=== PATIENT | female | born 1990 | race Caucasian/White ===

== ENCOUNTER 2018-04-21 14:22 | Inpatient (IN) | payer MEDICAID ==
[~2018-04-21] VITALS: Ht 162.6 cm; Wt 69.9 kg
[2018-04-21] MEDS ORDERED: LACTATED RINGER'S 1000 ML INJ 1,000 ML IV PRN (15:01)
--- NOTE | 2018-04-21 15:11 | HHI.HP ---
History & Physical H&P HPI Chief Complaint ctxs Date Seen: Apr 21, 2018 Time Seen: 15:04 Travel History International Travel<30 Days: No Contact w/Intl Traveler<30Days: No Known Affected Area: No History of Present Illness HPI pt. is a 28 y/o @ 38 4/7 weeks present w/ c/o ctxs. pt. states ctxs began last pm and have increased in intensity and freq since. +FM, no lof/vb. pt. checked when present and cervix 8/100/0. pt. w/ h/o prior cd 2/2 breech. Weeks Gestation: 38 Para: 1 : 4 Miscarriage: 2 History (Limited) History Past Medical History Medical History: Denies Significant Hx Obstetric History Obstetric History , x 1, sab x1 Past Surgical History Narrative Surgical cd x 1 Family History Family History: Negative Social History Alcohol Use: No Tobacco Use: No Substance Abuse: No Allergies-Medications Allergies-Medications ROS Review of Systems Physical Exam Physical Exam Narrative GENERAL: Well-nourished, well-developed patient. SKIN: Warm and dry. HEAD: Normocephalic and atraumatic. EYES: No scleral icterus. No injection or drainage. ENT: No nasal drainage noted. Mucous membranes pink. Airway patent. NECK: Supple, trachea midline. No JVD. CARDIOVASCULAR: Regular rate and rhythm without murmurs, gallops, or rubs. RESPIRATORY: Breath sounds equal bilaterally. No accessory muscle use. ABDOMEN/GI: Abdomen soft, non-tender, bowel sounds present, no rebound, no guarding Gravid GENITOURINARY: External Genitalia: intact and normal in appearance Dilatation: 8 Effacement: 100 Station: 0 Presentation: cephalic Membranes: intact Uterine Contractions: 3-5 FHT's: Category: 1 Reactive: + Variability: mod EXTREMITIES: No cyanosis or edema. BACK: Nontender without obvious deformity. No CVA tenderness. NEUROLOGICAL: Awake and alert. Motor and sensory grossly within normal limits. Five out of 5 muscle strength in all muscle groups. Normal speech. Data Data Data Vital Signs Reviewed: Yes Orders Orders Fentanyl Inj (Fentanyl Inj) (04/21/18 14:41) Group B Strep: Negative MDM MDM Medical Record Reviewed: Yes Plan pt. to be admitted. pt. counciled on tolac and desires. fentanyl vs epidural for analgesia. will continue to follow. Diagnosis Diagnosis: Primary Impression: Uterine contractions Additional Impressions: History of delivery 38 weeks gestation of Khanh Howard Jr., MD Apr 21, 2018 15:11
[2018-04-21] MEDS ORDERED: LIDOCAINE HCL 1% 50 ML VIAL I-DERMAL PRN (15:15)
[2018-04-21] MEDS ORDERED: OXYTOCIN 30 UNITS-500ML PREMIX 500 ML IV ONE (15:15)
[2018-04-21] MEDS ORDERED: LIDOCAINE HCL 1% 50 ML VIAL INFIL PRN (15:15)
[2018-04-21] MEDS ORDERED: MINERAL OIL 10 ML VIAL TOPICAL PRN (15:15)
[2018-04-21] MEDS ORDERED: SODIUM CHLORID 0.9% 500 ML INJ 500 ML IV PRN (15:15)
[2018-04-21] MEDS ORDERED: SODIUM CHLOR 0.9% 1000 ML INJ 1,000 ML IV PRN (15:21)
[2018-04-21 15:26] LABS: AUTOMATED NEUTROPHIL # 16.8 TH/MM3 (1.8-7.7); BASOPHIL % 0.2 % (0.0-2.0); HEMATOCRIT 41.7 % (35.0-46.0); HEMOGLOBIN 14.5 GM/DL (11.6-15.3); LYMPH % 7.2 % (9.0-44.0); LYMPHOCYTE # 1.3 TH/MM3 (1.0-4.8); MEAN CELL VOLUME 90.6 FL (80.0-100.0); MEAN CORPUSCULAR HEMOGLOBIN 31.4 PG (27.0-34.0); MEAN CORPUSCULAR HGB CONC 34.7 % (32.0-36.0); MEAN PLATELET VOLUME 11.6 FL (7.0-11.0); MONO % 2.1 % (0.0-8.0); MONOCYTE # 0.4 TH/MM3 (0-0.9); NEUT % 90.5 % (16.0-70.0); PLATELET COUNT 167 TH/MM3 (150-450); RED BLOOD COUNT 4.61 MIL/MM3 (4.00-5.30); RED CELL DISTRIBUTION WIDTH 13.1 % (11.6-17.2); WHITE BLOOD COUNT 18.6 TH/MM3 (4.0-11.0)
[2018-04-21] MEDS ORDERED: LACTATED RINGER'S 1000 ML INJ 1,000 ML IV SCH (15:30)
[2018-04-21] MEDS ORDERED: fentaNYL 2MCG-BUPIV 0.125% INJ 150 ML EPIDURAL ONE (15:34)
[2018-04-21] MEDS ORDERED: LIDOCAINE 2%/EPINEPHrine PF 1:200,000 20ML SDV ONE (15:41)
[2018-04-21] MEDS ORDERED: MEASLES, MUMPS, RUBELLA VACCINE 0.5 ML VIAL SQ ONE (16:00)
[2018-04-21] MEDS ORDERED: DIPHTH/TETANUS/ACEL PERTUSSIS (BOOSTER) 0.5 ML VIAL/PFS IM ONE (16:00)
--- NOTE | 2018-04-21 16:38 | PD.LABORPN ---
Subjective Subjective pt. in bed s/p epidural. pt. w/ poor fht pickup. Objective Objective Pelvic Exam: Dilatation:7-8 Effacement:90 Station: 0 Presentation: cephalic Membranes: AROM, clear fluid Uterine Contractions: q 2-3 min FHT's: Category:1, fse placed Reactive: + Variability: mod Weeks Gestation: 38 Pt started active labor?: Yes Active labor start date: Apr 21, 2018 Active labor start time: 14:00 Medical induction of labor?: No Artificial rupture of membrane: Yes Artificial ROM date: Apr 21, 2018 Artifical ROM time: 16:25 Assessment/Plan Problem List: (1) Active labor at term (2) History of delivery ICD Codes: Z98.891 - History of uterine scar from previous surgery (3) 38 weeks gestation of ICD Codes: Z3A.38 - 38 weeks gestation of (4) (vaginal after ) ICD Codes: O34.219 - Maternal care for unspecified type scar from previous delivery Assessment and Plan pt. have arom for clear fluid and fse placed 2/2 poor fht pickup. pt. comfortable s/p epidural. will monitor closely and augment w/ pitocin prn. Khanh Howard Jr., MD Apr 21, 2018 16:38
[2018-04-21] MEDS ORDERED: OXYTOCIN 30 UNITS-500ML PREMIX 500 ML IV PRN (16:45)
[2018-04-21 17:34] LABS: BILIRUBIN, URINE NEG (NEG); BLOOD, URINE NEG (NEG); GLUCOSE,URINE NEG (NEG); KETONE, URINE 150 mg/dL (NEG); MUCUS URINE MANY /lpf (OCC); NITRITE,URINE NEG (NEG); SQUAMOUS EPITHELIAL CELL URINE 2 /hpf (0-5); URINE COLOR YELLOW (YELLW/STRAW); URINE LEUKOCYTE ESTERASE NEG (NEG)
--- NOTE | 2018-04-21 20:35 | PD.OB.DELI ---
Weeks gestation: 38 Pt started active labor?: Yes Active labor start date: Apr 21, 2018 Active labor start time: 14:00 Medical induction of labor?: No Artificial rupture of membrane: Yes Artificial ROM date: Apr 21, 2018 Artifical ROM time: 16:25 Anesthesia: Epidural Episiotomy: Midline Vaginal Delivery: Normal, Spontaneous, Presentation: Occiput anterior Nuchal Cord: x1 Delayed cord clamping (45 sec): Yes Infant: Male Delivery date: Apr 21, 2018 Delivery time: 20:10 One Minute : 8 Five Minute : 9 Weight: 6'10" Placenta: Spontaneous delivery, Intact Laceration: Episiotomy, 2 deg Repair: Vicryl running Estimated blood loss: 400cc Khanh Howard Jr., MD Apr 21, 2018 20:35
[2018-04-21] MEDS ORDERED: oxyCODONE/ACETAMINOPHEN 5 MG/325 MG TAB PO PRN ×2 (20:45)
[2018-04-21] MEDS ORDERED: BENZOCAINE 20% TOPICAL SPRAY 60 ML CAN TOPICAL PRN (20:45)
[2018-04-21] MEDS ORDERED: DOCUSATE SODIUM 50 MG/SENNA 8.6 MG TAB PO PRN (20:45)
[2018-04-21] MEDS ORDERED: OXYTOCIN 30 UNITS-500ML PREMIX 500 ML IV SCH (20:45)
[2018-04-21] MEDS ORDERED: ZOLPIDEM TARTRATE 5 MG TAB PO PRN (20:45)
[2018-04-21] MEDS ORDERED: WITCH HAZEL 50%/GLYCERIN 12.5% 40 PAD JAR TOPICAL PRN (20:45)
[2018-04-21] MEDS ORDERED: ALUMINUM/MAGNESIUM/SIMETH 30 ML CUP PO PRN (20:45)
[2018-04-21] MEDS ORDERED: SODIUM CHLORIDE 0.9% FLUSH 10 ML FLUSH IV FLUSH PRN (20:45)
[2018-04-21] MEDS ORDERED: ONDANSETRON ODT 4 MG TAB PO PRN (20:45)
[2018-04-21] MEDS ORDERED: SODIUM CHLORIDE 0.9% FLUSH 10 ML FLUSH IV FLUSH SCH (21:00)
[2018-04-22] MEDS: IBUPROFEN 800 MG TAB PO PRN ×3 (02:10→18:16)
[2018-04-22 08:00] VITALS: BP 84/48; PULSE 67; RESP 18; TEMP 97.9; O2SAT 99
[2018-04-22] MEDS: ACETAMINOPHEN 325 MG TAB PO PRN ×3 (08:28→20:50)
--- NOTE | 2018-04-22 10:27 | HHI.OB ---
Subjective Post Day: 1 Remarks day #1. AFVSS overnight. Pain well-controlled. Decreased lochia. Denies dysuria. No breast tenderness. She is feeding the baby via breast. Appetite good. No nausea or vomiting. Endorses flatus. No bowel movement. Ambulating well. Denies calf pain, shortness of breath, or cough. Otherwise, she is doing well this morning and has no other complaints. Objective Vitals/I&O Vital Signs Date Time Temp Pulse Resp B/P (MAP) Pulse Ox O2 Delivery O2 Flow Rate FiO2 04/22/18 08:00 97.9 67 18 84/48 (60) 99 Objective Remarks GENERAL: Well-nourished, well-developed patient. CARDIOVASCULAR: Regular rate and rhythm without murmurs, gallops, or rubs. RESPIRATORY: Breath sounds equal bilaterally. No accessory muscle use. ABDOMEN/GI: Abdomen soft, non-tender. Fundus: Firm, non-tender at umbilicus. GENITOURINARY: Light to moderate bleeding. EXTREMITIES: No cyanosis or edema, non-tender, without signs of DVT. Medications and IVs Current Medications Medications (Trade) Dose Ordered Sig/Azalia Route Start Time Stop Time Status Last Admin Lactated Ringer's 1,000 ml @ 125 mls/hr Q8H IV 04/21/18 15:30 04/21/18 15:30 Lactated Ringer's 1,000 ml @ 3,000 mls/hr Q20M PRN IV 04/21/18 15:01 Sodium Chloride 500 ml @ 1,000 mls/hr ONCE PRN IV 04/21/18 15:15 04/22/18 15:14 Sodium Chloride 1,000 ml @ 100 mls/hr Q10H PRN IV 04/21/18 15:21 (Xylocaine 1% Inj (50 ml)) 0.1 ml UNSCH X1 PRN I-DERMAL 04/21/18 15:15 04/24/18 15:14 (fentaNYL INJ) 50 mcg Q1H PRN IV PUSH 04/21/18 15:15 (fentaNYL INJ) 100 mcg Q1H PRN IV PUSH 04/21/18 15:15 (Xylocaine 1% Inj (50 ml)) 10 ml UNSCH X1 PRN INFIL 04/21/18 15:15 04/23/18 15:14 (Muri-Lube Oil) 10 ml UNSCH PRN TOPICAL 04/21/18 15:15 (NS Flush) 2 ml BID IV FLUSH 04/21/18 21:00 (NS Flush) 2 ml UNSCH PRN IV FLUSH 04/21/18 20:45 (Tylenol) 650 mg Q4H PRN PO 04/21/18 20:45 04/22/18 08:28 (Motrin) 800 mg Q8H PRN PO 04/21/18 20:45 04/22/18 09:56 (Percocet 5-325 Mg) 1 tab Q4H PRN PO 04/21/18 20:45 (Percocet 5-325 Mg) 2 tab Q4H PRN PO 04/21/18 20:45 (Americaine 20% Top Spr) 1 spray Q4H PRN TOPICAL 04/21/18 20:45 04/21/18 23:06 (Tucks Pads) 1 applic QID PRN TOPICAL 04/21/18 20:45 04/21/18 23:07 (Pearl-Colace) 2 tab Q12H PRN PO 04/21/18 20:45 04/21/18 23:07 (Ambien) 5 mg HS PRN PO 04/21/18 20:45 (Mag-Al Plus Susp Liq) 15 ml Q8H PRN PO 04/21/18 20:45 (Zofran Odt) 4 mg Q6H PRN PO 04/21/18 20:45 Assessment/Plan Problem List: (1) History of delivery ICD Codes: Z98.891 - History of uterine scar from previous surgery (2) 38 weeks gestation of ICD Codes: Z3A.38 - 38 weeks gestation of (3) (vaginal after ) ICD Codes: O34.219 - Maternal care for unspecified type scar from previous delivery Assessment and Plan 28y/o who is PPD#1 s/p . -Continue routine care. -Percocet and Motrin PRN pain. -Encouraged OOB. Advised pelvic rest for 6 wks. -Will need a f/u appt. within 6 wks. -Re: ctrl, she is undecided -D/c in 1-2 more days. dw OB attending Esa Hays MD R2 Apr 22, 2018 10:27
[2018-04-23] MEDS: IBUPROFEN 800 MG TAB PO PRN ×2 (01:33→11:31)
--- NOTE | 2018-04-23 08:19 | HHI.OB ---
Subjective Remarks Patient is a 28-year-old delivered at 38 weeks and 4 days. Patient is day 2 after . Patient's pain is well-controlled. Patient reports eating and drinking without any nausea or vomiting. Patient reports minimal bleeding. Patient has passed gas but no bowel movements. Patient is walking without lower extremity pain or shortness of breath. Patient reports no desire for contraception and plans for breast-feeding. (Gomez Sharp MD R1) Remarks Patient seen and evaluated with resident under direct supervision, agree with assessment and plan. (Javier Berman MD) Objective Objective Remarks GENERAL: Well-nourished, well-developed patient. CARDIOVASCULAR: Regular rate and rhythm without murmurs, gallops, or rubs. RESPIRATORY: Breath sounds equal bilaterally. No accessory muscle use. ABDOMEN/GI: Abdomen soft, non-tender. Fundus: Firm, non-tender at umbilicus. GENITOURINARY: Light to moderate bleeding. EXTREMITIES: No cyanosis or edema, non-tender, without signs of DVT. Medications and IVs Current Medications Medications (Trade) Dose Ordered Sig/Azalia Route Start Time Stop Time Status Last Admin Lactated Ringer's 1,000 ml @ 125 mls/hr Q8H IV 04/21/18 15:30 04/21/18 15:30 Lactated Ringer's 1,000 ml @ 3,000 mls/hr Q20M PRN IV 04/21/18 15:01 Sodium Chloride 1,000 ml @ 100 mls/hr Q10H PRN IV 04/21/18 15:21 (Xylocaine 1% Inj (50 ml)) 0.1 ml UNSCH X1 PRN I-DERMAL 04/21/18 15:15 04/24/18 15:14 (fentaNYL INJ) 50 mcg Q1H PRN IV PUSH 04/21/18 15:15 (fentaNYL INJ) 100 mcg Q1H PRN IV PUSH 04/21/18 15:15 (Xylocaine 1% Inj (50 ml)) 10 ml UNSCH X1 PRN INFIL 04/21/18 15:15 04/23/18 15:14 (Muri-Lube Oil) 10 ml UNSCH PRN TOPICAL 04/21/18 15:15 (NS Flush) 2 ml BID IV FLUSH 04/21/18 21:00 (NS Flush) 2 ml UNSCH PRN IV FLUSH 04/21/18 20:45 (Tylenol) 650 mg Q4H PRN PO 04/21/18 20:45 04/22/18 20:50 (Motrin) 800 mg Q8H PRN PO 04/21/18 20:45 04/23/18 01:33 (Percocet 5-325 Mg) 1 tab Q4H PRN PO 04/21/18 20:45 (Percocet 5-325 Mg) 2 tab Q4H PRN PO 04/21/18 20:45 (Americaine 20% Top Spr) 1 spray Q4H PRN TOPICAL 04/21/18 20:45 04/21/18 23:06 (Tucks Pads) 1 applic QID PRN TOPICAL 04/21/18 20:45 04/21/18 23:07 (Pearl-Colace) 2 tab Q12H PRN PO 04/21/18 20:45 04/21/18 23:07 (Ambien) 5 mg HS PRN PO 04/21/18 20:45 (Mag-Al Plus Susp Liq) 15 ml Q8H PRN PO 04/21/18 20:45 (Zofran Odt) 4 mg Q6H PRN PO 04/21/18 20:45 (Gomez Sharp MD R1) Assessment/Plan Problem List: (1) History of delivery ICD Codes: Z98.891 - History of uterine scar from previous surgery (2) 38 weeks gestation of ICD Codes: Z3A.38 - 38 weeks gestation of (3) (vaginal after ) ICD Codes: O34.219 - Maternal care for unspecified type scar from previous delivery Assessment and Plan 28y/o who is PPD#2 s/p . -Continue routine care. -Percocet and Motrin PRN pain. -Encouraged OOB. Advised pelvic rest for 6 wks. -Will need a f/u appt. within 6 wks. -Re: ctrl, she does not desire at this time -D/c today. dw OB attending Discharge Planning Discharge today (Gomez Sharp MD R1) Gomez Sharp MD R1 Apr 23, 2018 08:19 Javier Berman MD Apr 23, 2018 09:50
[2018-04-23] MEDS: ACETAMINOPHEN 325 MG TAB PO PRN ×2 (08:27→15:52)
[2018-04-23] MEDS ORDERED: PERI PO (09:34)
[2018-04-23] MEDS ORDERED: IBUP1TAB7 PO ×2 (09:34→09:37)
--- NOTE | 2018-04-23 09:35 | HHI.DCPOC ---
Discharge Care Plan Diagnosis: (1) (vaginal after ) (2) 38 weeks gestation of Report Symptoms to Your Doctor -Temperature above 100.5 degrees -Redness, of incision or excessive or foul smelling drainage -Unusual pain or calf pain -Increased vaginal bleeding -Painful or difficulty urinating -Feelings of extreme sadness or anxiety after 2 weeks Goals to Promote Your Health * To prevent worsening of your condition and complications * To maintain your health at the optimal level Directions to Meet Your Goals Take your medications as prescribed Follow your dietary instruction Follow activity as directed Ensure plenty of rest for recovery Drink fluids for hydration Keep your appointments as scheduled Take your immunizations and boosters as scheduled If your symptoms worsen call your PCP, if no PCP go to Urgent Care Center or Emergency Room Smoking is Dangerous to Your Health. Avoid second hand smoke Call the 24-hour crisis hotline for domestic abuse at Gomez Sharp MD R1 Apr 23, 2018 09:35
[2018-04-23] MEDS ORDERED: DOCU8.6T PO (09:37)
== END 2018-04-23 18:00 | disposition home or self-care (01) | DRG 775 ==
LOC: H2EB 14:22 → H1EA 22:03
PROVIDERS: ADMIT Obstetrics & Gynecology; ATTEND Obstetrics & Gynecology
PROC: 10E0XZZ Delivery of Products of Conception, External Approach (ICD-10-PCS; principal; 2018-04-21)
PROC: 0W8NXZZ Division of Female Perineum, External Approach (ICD-10-PCS; 2018-04-21)
PROC: 00HU33Z Insertion of Infusion Device into Spinal Canal, Percutaneous Approach (ICD-10-PCS; 2018-04-21)
PROC: 3E0R3BZ Introduction of Anesthetic Agent into Spinal Canal, Percutaneous Approach (ICD-10-PCS; 2018-04-21)
PROC: 10907ZC Drainage of Amniotic Fluid, Therapeutic from Products of Conception, Via Natural or Artificial Opening (ICD-10-PCS; 2018-04-21)
DX: O34.219 Maternal care for unspecified type scar from previous cesarean delivery (principal); O69.81X0 Labor and delivery complicated by cord around neck, without compression, not applicable or unspecified; Z37.0 Single live birth; Z3A.38 38 weeks gestation of pregnancy
CPT/HCPCS: 80307; 81001; 85025; 86900; 86901; G0481; J2590; J3010; J7120